=== PATIENT | male | born 1960 | race African-American/Black ===

== ENCOUNTER 2021-03-12 16:24 | Emergency (ER) | payer MEDICARE | END 2021-03-12 19:42 | disposition home or self-care (01) | LOC: CSHERS 16:24 | DX: T82.838A Hemorrhage due to vascular prosthetic devices, implants and grafts, initial encounter (principal); I25.2 Old myocardial infarction; E78.5 Hyperlipidemia, unspecified; E78.00 Pure hypercholesterolemia, unspecified; M10.9 Gout, unspecified; G47.30 Sleep apnea, unspecified; I11.0 Hypertensive heart disease with heart failure; I50.9 Heart failure, unspecified | CPT/HCPCS: 99283 ==

== ENCOUNTER 2023-11-02 08:43 | Inpatient (IN) | payer MEDICARE, OTHER ==
[2023-11-02 09:18] LABS: #Eosinphils 0.1 10x3/uL (0.0-0.5); #Monocytes 0.4 10x3/uL (0.0-1.1); #Neutrophils 5.3 10x3/uL (1.5-8.4); %Basophils 0.3 % (0.0-2.0); %Eosinophils 0.7 % (0.0-6.0); %Lymphocytes 12.9 % (18.0-47.0); %Monocytes 6.5 % (0.0-10.0); Hematocrit 34.7 % (38.8-50.0); Hemoglobin 11.1 g/dL (13.5-17.5); Mean Corpuscular Hemoglobin 27.5 pg (27.0-33.0); Mean Corpuscular Volume 86.1 fl (81.2-95.1); Mean Platelet Volume 11.6 fl (7.4-10.4); Platelet Count 103 10x3/uL (150-450); RBC Distribution Width 14.9 % (11.5-14.5); Red Blood Cell (RBC) Count 4.03 10x6/uL (4.32-5.72); White Blood Cell (WBC) Count 6.8 10x3/uL (3.5-10.5)
[2023-11-02 09:20] LABS: AST (SGOT) 14 U/L (5-34); Albumin 3.2 g/dL (3.4-4.8); Anion Gap 21 mmol/L (10-20); Bilirubin, Total 0.8 mg/dL (0.2-1.2); Calc. Creatinine Clearance 0 mL/min (70-130); Calcium 9.1 mg/dL (7.8-10.44); Carbon Dioxide 25 mmol/L (23-31); Chloride 95 mmol/L (98-107); Estimated GFR 10; Globulin 3.5 g/dL (2.4-3.5); Potassium 4.5 mmol/L (3.5-5.1); Protein, Total 6.7 g/dL (5.8-8.1); Sodium 136 mmol/L (136-145)
[2023-11-02 09:33] LABS: ALT (SGPT) 7 U/L (8-55); Alkaline Phosphatase 57 U/L (40-110); BUN (Urea Nitrogen) 17 mg/dL (8.4-25.7); Glucose 91 mg/dL (80-115)
[2023-11-02] MEDS ORDERED: Aspirin Chewable 81 MG TAB ONE (11:55)
[2023-11-02 12:08] LABS: Troponin I 2.688 ng/mL (< 0.028)
[2023-11-02 14:02] LABS: INR-International Normal Ratio 1.1; PTT 31.3 sec (22.0-33.0); Prothrombin Time 12.3 sec (9.5-12.1)
[2023-11-02] MEDS ORDERED: Heparin 25,000 units/D5W 500 ML ONE (14:10)
[2023-11-02] MEDS ORDERED: Heparin 10,000 UNITS/ 10 ML VIAL SLOW IVP SCH ×2 (14:15→15:15)
[2023-11-02] MEDS ORDERED: Guaifenesin DM 100-10/5 ML UDCUP PO PRN (14:33)
[2023-11-02] MEDS ORDERED: HYDROcodone/Acetaminophen 5/325 mg Tablet PO PRN (14:33)
[2023-11-02] MEDS ORDERED: Senokot S 8.6-50 MG TAB PO PRN (14:33)
[2023-11-02] MEDS ORDERED: Ondansetron PF 4 MG/2 ML Vial IVP PRN (14:33)
[2023-11-02] MEDS ORDERED: Acetaminophen 325 MG TAB PO PRN (14:33)
[2023-11-02] MEDS ORDERED: Heparin 25,000 units/D5W 500 ML IVPB SCH (15:15)
[2023-11-02 15:51] LABS: Hemoglobin 11.5 g/dL (13.5-17.5); Platelet Count 91 10x3/uL (150-450)
[2023-11-02 16:05] VITALS: BMI 23.0
[2023-11-02] MEDS ORDERED: Famotidine/PF 20 mg/2ml Vial SLOW IVP SCH (21:00)
[2023-11-02] MEDS ORDERED: Nitroglycerin 0.4 MG TAB (25 Tab Bottle) SL SCH (21:30)
[2023-11-02] MEDS ORDERED: Digoxin 0.5 MG/2 ML AMP SLOW IVP SCH ×3 (21:30→23:59)
[2023-11-02] MEDS ORDERED: Latanoprost 0.005% Ophth Soln 2.5 ml Bottle EA EYE SCH (21:45)
[2023-11-02] MEDS ORDERED: Atorvastatin Calcium 10 MG TAB PO SCH (21:45)
[2023-11-02] MEDS ORDERED: Amiodarone 200 MG TAB PO SCH (22:00)
[2023-11-02 22:28] LABS: Troponin I 4.935 ng/mL (< 0.028)
[2023-11-03] MEDS ORDERED: traMADol HCl 50 MG TAB PO SCH (02:15)
[2023-11-03] MEDS ORDERED: Digoxin 0.5 MG/2 ML AMP SLOW IVP SCH (03:00)
[2023-11-03 03:44] LABS: #Monocytes 0.6 10x3/uL (0.0-1.1); #Neutrophils 6.6 10x3/uL (1.5-8.4); %Basophils 0.1 % (0.0-2.0); %Eosinophils 0.2 % (0.0-6.0); %Lymphocytes 10.1 % (18.0-47.0); %Neutrophils 82.1 % (40.0-75.0); Hemoglobin 10.6 g/dL (13.5-17.5); Mean Corpuscular HGB CONC 32.1 g/dL (32.0-36.0); Mean Corpuscular Hemoglobin 27.2 pg (27.0-33.0); Mean Corpuscular Volume 84.8 fl (81.2-95.1); Mean Platelet Volume 10.7 fl (7.4-10.4); Platelet Count 98 10x3/uL (150-450); Red Blood Cell (RBC) Count 3.89 10x6/uL (4.32-5.72)
[2023-11-03 03:48] LABS: Anion Gap 21 mmol/L (10-20); BUN (Urea Nitrogen) 26 mg/dL (8.4-25.7); Calc. Creatinine Clearance 10 mL/min (70-130); Calcium 9.4 mg/dL (7.8-10.44); Carbon Dioxide 24 mmol/L (23-31); Chloride 96 mmol/L (98-107); Estimated GFR 7; Glucose 116 mg/dL (80-115); Potassium 4.7 mmol/L (3.5-5.1); Sodium 136 mmol/L (136-145)
[2023-11-03 04:01] LABS: Troponin I 6.316 ng/mL (< 0.028)
[2023-11-03 04:39] LABS: Microcytosis SLIGHT = 6-15 cells (100X) (0-5/hpf); Platelet Adequacy Comment Appears Decreased
[2023-11-03] MEDS ORDERED: Digoxin 0.125 MG TAB PO SCH (07:30)
[2023-11-03] MEDS ORDERED: Carvedilol 3.125 MG TAB PO SCH ×2 (08:00)
[2023-11-03] MEDS ORDERED: Aspirin 81 mg Enteric Coated Tablet PO SCH (09:00)
[2023-11-03] MEDS ORDERED: Amiodarone 200 MG TAB PO SCH (09:00)
[2023-11-03] MEDS ORDERED: Lidocaine 1% (PF) 30 ML VIAL ONE (10:02)
[2023-11-03] MEDS ORDERED: Nitroglycerin 50 MG/250 ML BOT 0 ML ONE (10:02)
[2023-11-03] MEDS ORDERED: Heparin 10,000 UNITS/ 10 ML VIAL ONE (10:03)
[2023-11-03] MEDS ORDERED: Bivalirudin 250 MG VIAL ONE (10:03)
[2023-11-03] MEDS ORDERED: Atropine Sulfate 1 mg/1 ml Vial ONE (10:03)
[2023-11-03] MEDS ORDERED: Adenosine 6 MG/2 ML VIAL ONE (10:03)
[2023-11-03 10:27] VITALS: TEMP 99
[2023-11-03 11:08] LABS: Actual Bicarbonate (HCO3a) 18.9 mEq/L (22-28); Analyzer IN Cardio CS ICU; Base Excess (BEa) -3.2 mEq/L (-2.0 to +3.0); Calcium, Ionized (arterial) 1.17 mmol/L (1.12-1.30); Carboxyhemoglobin (COHb) 0.7 gm% (0.0-3.0); Hematocrit-ABG 38 % (42.0-52.0); Hemoglobin (Hb) 12.8 g/dL (14.0-18.0); Puncture Site LRA; pH, Arterial 7.479 (7.35-7.45)
[2023-11-03 11:36] LABS: Troponin I 6.207 ng/mL (< 0.028)
[2023-11-03 12:20] LABS: Lactic Acid 6.4 mmol/L (0.5-2.2)
[2023-11-03] MEDS ORDERED: NOREPINEPHRINE 8 MG/250 ML-D5W 250 ML IVPB SCH (12:45)
[2023-11-03] MEDS ORDERED: Vancomycin Diaylsis Sliding Scale (Wt 71-99) FS SCH (13:15)
[2023-11-03 13:42] LABS: Anion Gap 22 mmol/L (10-20); BUN (Urea Nitrogen) 31 mg/dL (8.4-25.7); Calc. Creatinine Clearance 9 mL/min (70-130); Calcium 9.4 mg/dL (7.8-10.44); Carbon Dioxide 23 mmol/L (23-31); Chloride 96 mmol/L (98-107); Estimated GFR 6; Glucose 113 mg/dL (80-115); Potassium 5.3 mmol/L (3.5-5.1); Sodium 136 mmol/L (136-145)
[2023-11-03] MEDS ORDERED: Vancomycin (BATCH) 1.5 GM in Premix 1 BAG IVPB SCH (14:00)
[2023-11-03] MEDS ORDERED: Cefepime 1 GM in Sodium Chloride 0.9% 100 ML IVPB SCH (14:00)
[2023-11-03 14:31] VITALS: BP 99/50
[2023-11-03] MEDS ORDERED: Albumin 25% 25 GM/100 ML BOT IVPB SCH (18:00)
[2023-11-03] MEDS ORDERED: Atorvastatin Calcium 10 MG TAB PO SCH (21:00)
[2023-11-03] MEDS ORDERED: Latanoprost 0.005% Ophth Soln 2.5 ml Bottle EA EYE SCH (21:00)
== END 2023-11-03 13:33 | disposition expired ==
LOC: CSHERS 08:43 → CSHTELE 14:02 → OBSVTOIN 14:02 → CSHIMCU 11-03 12:20
PROVIDERS: ADMIT Internal Medicine; ATTEND Internal Medicine
DX: I21.4 Non-ST elevation (NSTEMI) myocardial infarction (principal); J96.01 Acute respiratory failure with hypoxia; N18.6 End stage renal disease; I13.2 Hypertensive heart and chronic kidney disease with heart failure and with stage 5 chronic kidney disease, or end stage renal disease; I42.2 Other hypertrophic cardiomyopathy; R57.9 Shock, unspecified; E87.20 Acidosis, unspecified; E78.00 Pure hypercholesterolemia, unspecified; M10.9 Gout, unspecified; I50.9 Heart failure, unspecified; L40.9 Psoriasis, unspecified; I25.10 Atherosclerotic heart disease of native coronary artery without angina pectoris; I48.91 Unspecified atrial fibrillation; I95.9 Hypotension, unspecified; K21.9 Gastro-esophageal reflux disease without esophagitis; Z79.82 Long term (current) use of aspirin; Z99.2 Dependence on renal dialysis; Z85.528 Personal history of other malignant neoplasm of kidney; Z98.890 Other specified postprocedural states; I25.2 Old myocardial infarction; Z95.810 Presence of automatic (implantable) cardiac defibrillator; Z90.5 Acquired absence of kidney; Z92.89 Personal history of other medical treatment; Z79.899 Other long term (current) drug therapy; Z95.1 Presence of aortocoronary bypass graft; I49.3 Ventricular premature depolarization; I51.7 Cardiomegaly; R09.2 Respiratory arrest
CPT/HCPCS: 36415; 36600; 71045; 80048; 80053; 82805; 83605; 83735; 83880; 84484; 85025; 85610; 85730; 87040; 87077; 93005; 93010; 93306; 94660; 94760; J0153; J0461; J0583; J1160; J1644; J2001